=== PATIENT | female | born 1940 | race Caucasian/White ===

== ENCOUNTER 2017-01-05 10:17 | Emergency (ER) | payer OTHER ==
[~2017-01-05 10:17] MED LIST: ASPIRIN LOW DOS81 M1 PO; CEPHALEXIN500 MG PO; CLA10 PO; D O S100 MG PO; GABAPENTIN100 MG PO; LEVEMIR100 U/M1 SC; LORAZEPAM1 PO; METFORMIN500 MG PO; NIT0.4 SL; PANTOPRAZOLE SO40 M1 PO; RANITIDINE 150150 MG PO; SIMVASTATIN20 MG PO; TRADJENTA5 M1 PO; TRE400 PO; TRIBENZOR 5 MG PO
[2017-01-05 12:53] VITALS: BP 166/68
== END 2017-01-05 12:53 | disposition home or self-care (01) ==
LOC: ED 10:17
DX: L25.8 Unspecified contact dermatitis due to other agents (principal); R22.0 Localized swelling, mass and lump, head; R68.83 Chills (without fever); I10 Essential (primary) hypertension; E11.9 Type 2 diabetes mellitus without complications; Z86.79 Personal history of other diseases of the circulatory system; Z79.899 Other long term (current) drug therapy; Z88.8 Allergy status to other drugs, medicaments and biological substances; T36.8X5A Adverse effect of other systemic antibiotics, initial encounter; Y92.89 Other specified places as the place of occurrence of the external cause
CPT/HCPCS: J7512

== ENCOUNTER 2017-06-09 01:50 | Emergency (ER) | payer OTHER ==
[2017-06-09 02:57] LABS: CALCIUM 8.9 mg/dL (8.5-10.1); CARBON DIOXIDE 26.9 mmol/L (21-32); CHLORIDE SERUM 104 mmol/L (98-107); CREATININE SERUM 0.9 mg/dL (0.6-1.0); GLUCOSE SERUM 192 mg/dL (74-106); POTASSIUM SERUM 4.2 mmol/L (3.5-5.1); SODIUM SERUM 139 mmol/L (136-145)
[2017-06-09 03:01] LABS: ALBUMIN 3.4 g/dL (3.4-5.0); ALKALINE PHOSPHATASE 117 U/L (46-116); ALT/SGPT 25 U/L (14-59); AST/SGOT 36 U/L (15-37); BILIRUBIN TOTAL 0.35 mg/dL (0.20-1.00); LIPASE 256 IU/L (73-393)
[2017-06-09 03:02] LABS: TOTAL PROTEIN, SERUM 8.5 g/dL (6.4-8.2)
[2017-06-09 04:55] VITALS: BP 119/60
== END 2017-06-09 04:55 | disposition home or self-care (01) ==
LOC: ED 01:50
PROVIDERS: Emergency Medicine Emergency Medical Services
DX: K29.70 Gastritis, unspecified, without bleeding (principal); E78.00 Pure hypercholesterolemia, unspecified; I10 Essential (primary) hypertension; E11.9 Type 2 diabetes mellitus without complications; Z88.8 Allergy status to other drugs, medicaments and biological substances

== ENCOUNTER 2018-01-17 12:36 | Emergency (ER) | payer OTHER ==
[~2018-01-17] VITALS: Ht 149.9 cm; Wt 57.6 kg
[2018-01-17 12:45] VITALS: BP 108/64
== END 2018-01-17 14:30 | disposition home or self-care (01) ==
LOC: ED 12:36
DX: N76.0 Acute vaginitis (principal); I10 Essential (primary) hypertension; E11.9 Type 2 diabetes mellitus without complications; K21.9 Gastro-esophageal reflux disease without esophagitis; E78.00 Pure hypercholesterolemia, unspecified; Z88.8 Allergy status to other drugs, medicaments and biological substances

== ENCOUNTER 2018-03-22 20:29 | Emergency (ER) | payer OTHER ==
[~2018-03-22] VITALS: Ht 149.9 cm; Wt 64.9 kg
[2018-03-22 20:53] VITALS: Ht 149.9 cm; Wt 64.9 kg
[2018-03-22 22:18] LABS: microscopic required? NO
[2018-03-22 22:20] LABS: BASOPHIL % 0.9 % (0-2); PLATELET COUNT 262 x10^3mcL (130-400); RED CELL DISTRIBUTION WIDTH 13.7 % (11.5-14.5)
[2018-03-22 22:26] LABS: CALCIUM 9.5 mg/dL (8.5-10.1); CARBON DIOXIDE 26.6 mmol/L (21-32); CHLORIDE SERUM 103 mmol/L (98-107); CREATININE SERUM 0.9 mg/dL (0.6-1.0); GLUCOSE SERUM 174 mg/dL (74-106); POTASSIUM SERUM 4.4 mmol/L (3.5-5.1); SODIUM SERUM 141 mmol/L (136-145)
[2018-03-22 22:37] LABS: ALBUMIN 3.8 g/dL (3.4-5.0); ALKALINE PHOSPHATASE 117 U/L (46-116); ALT/SGPT 21 U/L (14-59); AST/SGOT 23 U/L (15-37); BILIRUBIN TOTAL 0.27 mg/dL (0.20-1.00); CHOLESTEROL 149 mg/dL (<200); HDL CHOLESTEROL 43 mg/dL (40-60); LIPASE 344 IU/L (73-393); T4(THYROXINE) 6.5 ug/dL (4.7-13.3)
[2018-03-22 22:40] LABS: AMYLASE 132 U/L (25-115); TOTAL PROTEIN, SERUM 9.4 g/dL (6.4-8.2)
[2018-03-22 22:43] LABS: AMPHETAMINE QUAL UR NONE DETECTED (See below)
[2018-03-22 22:47] LABS: UA SPECIFIC GRAVITY <=1.005 (1.005-1.035); urine erythrocyte NEGATIVE (NEGATIVE)
[2018-03-22] MEDS ORDERED: METOPROLOL TART25 M1 PO (23:36)
[2018-03-22] MEDS ORDERED: ATORVASTATIN CA10 M1 PO (23:36)
[2018-03-22] MEDS ORDERED: GOOD SENSE OMEP20 MG PO (23:36)
[2018-03-22] MEDS ORDERED: COLACE100 MG (23:37)
[2018-03-22] MEDS ORDERED: FUROSEMIDE20 MG PO (23:37)
[2018-03-23 01:34] VITALS: BP 140/66
== END 2018-03-23 01:34 | disposition home or self-care (01) ==
LOC: ED 20:29
PROVIDERS: Emergency Medicine
DX: K59.00 Constipation, unspecified (principal); R33.9 Retention of urine, unspecified; Z95.1 Presence of aortocoronary bypass graft; E11.9 Type 2 diabetes mellitus without complications; I10 Essential (primary) hypertension; E78.00 Pure hypercholesterolemia, unspecified; Z88.8 Allergy status to other drugs, medicaments and biological substances
CPT/HCPCS: 36415; J7030; Q0092; Q9967

== ENCOUNTER 2018-12-01 16:14 | Emergency (ER) | payer OTHER | END 2018-12-01 18:40 | disposition home or self-care (01) | LOC: ED 16:14 ==

== ENCOUNTER 2019-03-04 23:38 | Emergency (ER) | payer OTHER ==
[~2019-03-04] VITALS: Ht 165.1 cm; Wt 81.6 kg
[~2019-03-04 23:38] MED LIST changes: +ATORVASTATIN CA10 M1 PO; +COLACE100 MG; +FUROSEMIDE20 MG PO; +GOOD SENSE OMEP20 MG PO; +METOPROLOL TART25 M1 PO
[2019-03-04 23:49] VITALS: Ht 165.1 cm; Wt 81.6 kg
[2019-03-05 00:52] LABS: BASOPHIL % 0.7 % (0-2); PLATELET COUNT 269 x10^3mcL (130-400)
[2019-03-05 00:57] LABS: RED CELL DISTRIBUTION WIDTH 15.6 % (11.5-14.5)
[2019-03-05 01:17] LABS: CALCIUM 9.2 mg/dL (8.5-10.1); CARBON DIOXIDE 26.8 mmol/L (21-32); CHLORIDE SERUM 100 mmol/L (98-107); CREATININE SERUM 1.4 mg/dL (0.6-1.0); GLUCOSE SERUM 216 mg/dL (74-106); POTASSIUM SERUM 4.3 mmol/L (3.5-5.1); SODIUM SERUM 140 mmol/L (136-145)
[2019-03-05 01:22] LABS: ALBUMIN 3.7 g/dL (3.4-5.0); ALKALINE PHOSPHATASE 174 U/L (46-116); ALT/SGPT 25 U/L (14-59); AST/SGOT 23 U/L (15-37); BILIRUBIN TOTAL 0.3 mg/dL (0.20-1.00); LIPASE 346 IU/L (73-393); TOTAL PROTEIN, SERUM 8.9 g/dL (6.4-8.2)
[2019-03-05 03:35] VITALS: BP 134/55
== END 2019-03-05 03:35 | disposition home or self-care (01) ==
LOC: ED 23:38
PROVIDERS: Emergency Medicine
DX: K59.00 Constipation, unspecified (principal); N30.90 Cystitis, unspecified without hematuria; N28.9 Disorder of kidney and ureter, unspecified; I10 Essential (primary) hypertension; E11.9 Type 2 diabetes mellitus without complications; K21.9 Gastro-esophageal reflux disease without esophagitis; E78.00 Pure hypercholesterolemia, unspecified; Z88.8 Allergy status to other drugs, medicaments and biological substances
CPT/HCPCS: J2405; J7030

== ENCOUNTER 2019-07-03 20:37 | Emergency (ER) | payer OTHER ==
[~2019-07-03] VITALS: Ht 134.6 cm; Wt 63.5 kg
[2019-07-03 20:45] VITALS: Ht 134.6 cm; Wt 63.5 kg
[2019-07-04] VITALS: BP 134/48
== END 2019-07-04 | disposition home or self-care (01) ==
LOC: ED 20:37
DX: K59.00 Constipation, unspecified (principal); R55 Syncope and collapse; I10 Essential (primary) hypertension; E11.9 Type 2 diabetes mellitus without complications; E78.00 Pure hypercholesterolemia, unspecified; K21.9 Gastro-esophageal reflux disease without esophagitis; Z95.1 Presence of aortocoronary bypass graft